=== PATIENT | female | born 1960 | race Caucasian/White ===

== ENCOUNTER → 2017-06-28 | Outpatient (CLI) | payer BC ==
--- NOTE | 2017-07-03 10:42 | MM ---
Reason for exam: screening (asymptomatic). Last mammogram was performed 5 years and 2 months ago. History: Patient is postmenopausal and had first child at age 30. Physical Findings: A clinical breast exam by your physician is recommended on an annual basis and results should be correlated with mammographic findings. MG Screening Mammo w CAD Bilateral CC and MLO view(s) were taken. Prior study comparison: April 25, 2012, bilateral digital screening mammo w/CAD. February 15, 2005, bilateral screening mammogram. The breast tissue is heterogeneously dense. This may lower the sensitivity of mammography. No significant changes when compared with prior studies. ASSESSMENT: Benign, BI-RAD 2 RECOMMENDATION: Routine screening mammogram of both breasts in 1 year.
== END | disposition home or self-care (01) ==
LOC: RADMAMWWP 17:07
PROVIDERS: ATTEND Family Medicine
DX: Z12.31 Encounter for screening mammogram for malignant neoplasm of breast (principal)

== ENCOUNTER 2017-06-30 10:13 | Day surgery (SDC) | payer BC ==
[2017-06-28 10:07] VITALS: BMI 31.1
[~2017-06-30 10:13] MED LIST: LACTATED RINGERS 1,000 ML IV SCH; LIDOCAINE 1% 20 ML VIAL (10MG/ML) FOR IV START INTRADERMA PRN
[2017-06-30 11:14] VITALS: RESP 16
[2017-06-30] MEDS ORDERED: PROPOFOL 10 MG/ML 20 ML VIAL IV ONE (11:40)
--- NOTE | 2017-06-30 11:43 | P.GSHP ---
History of Present Illness H&P Date: 06/30/17 Chief Complaint: Screening colonoscopy This a 57-year-old female referred from Dr. Ira Huitron. Patient rents today for initial screening colonoscopy. Past Medical History Past Medical History: No Reported History History of Any Multi-Drug Resistant Organisms: None Reported Past Surgical History: Tonsillectomy Past Anesthesia/Blood Transfusion Reactions: No Reported Reaction Smoking Status: Never smoker - Past Family History Father Family Medical History: Cancer Medications and Allergies Home Medications Medication Instructions Recorded Confirmed Type No Known Home Medications [No 06/28/17 06/30/17 History Known Home Medications] Allergies Allergy/AdvReac Type Severity Reaction Status Date / Time No Known Allergies Allergy Verified 06/30/17 10:58 Surgical - Exam Vital Signs Temp Pulse Resp BP Pulse Ox 97.3 F L 83 16 136/80 94 L 06/30/17 11:09 06/30/17 11:09 06/30/17 11:09 06/30/17 11:09 06/30/17 11:09 - General well developed, no distress - Eyes PERRL - ENT normal pinna - Neck no masses - Respiratory normal expansion - Cardiovascular Rhythm: regular - Abdomen Abdomen: soft, non tender Assessment and Plan Plan: We will perform screening colonoscopy.
--- NOTE | 2017-06-30 11:55 | P.OP ---
Date of Procedure: 06/30/17 Preoperative Diagnosis: Screening colonoscopy Postoperative Diagnosis: Diverticulosis Procedure(s) Performed: Colonoscopy Implants: Anesthesia: MAC Surgeon: Foreign Rehman Pathology: none sent Condition: stable Disposition: PACU Indications for Procedure: Operative Findings: Description of Procedure: Patient's placed on the endoscopy table in the lateral position. She received IV sedation. Digital rectal exam was performed which revealed no abnormalities. The flexible colonoscope was then placed patient anus passed throughout the entire colon. The ileocecal valve was visualized. The cecum, ascending and transverse colon appeared normal. In the descending; there is mild diverticular changes. The scope was then brought back the rectum and this appeared normal. Scope was withdrawn for patient.
[2017-06-30 12:09] VITALS: TEMP 98
[2017-06-30 12:39] VITALS: BP 132/81; PULSE 80
== END 2017-06-30 12:51 | disposition home or self-care (01) ==
LOC: ORWHC2ENDO 10:13
PROVIDERS: ATTEND Surgery
DX: Z12.11 Encounter for screening for malignant neoplasm of colon (principal); K57.30 Diverticulosis of large intestine without perforation or abscess without bleeding; Z80.9 Family history of malignant neoplasm, unspecified
CPT/HCPCS: G0121; J2704

== ENCOUNTER → 2018-09-19 | Outpatient (CLI) | payer OTHER ==
--- NOTE | 2018-09-19 13:22 | MM ---
Reason for exam: screening (asymptomatic). Last mammogram was performed 1 year and 3 months ago. History: Patient is postmenopausal and had first child at age 30. Physical Findings: A clinical breast exam by your physician is recommended on an annual basis and results should be correlated with mammographic findings. MG Screening Mammo w CAD Bilateral CC, MLO, and XCCL view(s) were taken. Prior study comparison: June 28, 2017, bilateral MG screening mammo w CAD. April 25, 2012, bilateral digital screening mammo w/CAD. The breast tissue is heterogeneously dense. This may lower the sensitivity of mammography. No suspicious abnormality. No significant changes when compared with prior studies. ASSESSMENT: Negative, BI-RAD 1 RECOMMENDATION: Routine screening mammogram of both breasts in 1 year.
--- NOTE | 2018-09-19 16:44 | BD ---
EXAMINATION TYPE: Axial Bone Density DATE OF EXAM: 09/19/2018 COMPARISON: NONE CLINICAL HISTORY: post menopausal, Z78.0 Height: 5'2 Weight: 155 FRAX RISK QUESTIONS: Secondary Osteoporosis: 3. Menopause before 45: y RISK FACTORS HISTORY OF: Postmenopausal woman: y MEDICATIONS: Additional History: EXAM MEASUREMENTS: Bone mineral densitometry was performed using the Digital Lumens System. Bone mineral density as measured about the Lumbar spine is: ----- L1-L4(G/cm2): 1.052 T Score Values are as follows: ----- L2: -1.3 ----- L3: -1.2 ----- L4: -0.7 ----- L1-L4: -1.1 Bone mineral density about the R hip (g/cm2): 0.813 Bone mineral density about the L hip (g/cm2): 0.838 T Score values are as follows: -----R Neck: -1.6 -----L Neck: -1.4 -----R Total: -1.1 -----L Total: -0.8 IMPRESSION: Osteopenia (T Score between -2.5 and -1). There is slightly increased risk of fracture and the patient may be considered for treatment. Re-Screen 2-5 years. NOTE: T-SCORE=SD OF THE YOUNG ADULT MEAN.
== END | disposition home or self-care (01) ==
LOC: RADMAMWWP 07:00
PROVIDERS: ATTEND Family Medicine
DX: Z12.31 Encounter for screening mammogram for malignant neoplasm of breast (principal); M85.80 Other specified disorders of bone density and structure, unspecified site; Z78.0 Asymptomatic menopausal state; Z80.3 Family history of malignant neoplasm of breast
CPT/HCPCS: 77067; 77080

== ENCOUNTER 2021-04-15 08:48 | Day surgery (SDC) | payer OTHER ==
[2021-03-09 11:52] VITALS: BMI 27.4
[~2021-04-15 08:48] MED LIST changes: +LIDOCAINE 1% (10MG/ML) FOR IV START INTRADERMA PRN; -LIDOCAINE 1% 20 ML VIAL (10MG/ML) FOR IV START INTRADERMA PRN
[2021-04-15] MEDS ORDERED: LIDOCAINE 1% (10MG/ML) FOR IV START INTRADERMA ONE ×2 (09:33→09:34)
[2021-04-15] MEDS ORDERED: LACTATED RINGERS 1,000 ML IV ONE (09:34)
[2021-04-15 09:37] VITALS: RESP 16; TEMP 97.8
[2021-04-15] MEDS ORDERED: fentaNYL (PF) 50 MCG/ML 2 ML AMP ONE (10:26)
[2021-04-15] MEDS ORDERED: MIDAZOLAM 2 MG/2 ML VIAL ONE (10:26)
[2021-04-15] MEDS ORDERED: GLYCOPYRROLATE 0.2 MG/ML 2 ML VIAL ONE (10:26)
[2021-04-15] MEDS ORDERED: PROPOFOL 10 MG/ML 20 ML VIAL IV ONE (10:26)
--- NOTE | 2021-04-15 10:35 | P.GSHP ---
History of Present Illness H&P Date: 04/15/21 Chief Complaint: Screening colonoscopy Is a 61-year-old female who presents today for screening colonoscopy. Patient denies a significant GI complaints. Past Medical History Past Medical History: No Reported History History of Any Multi-Drug Resistant Organisms: None Reported Past Surgical History: Tonsillectomy Additional Past Surgical History / Comment(s): COLONOSCOPY Past Anesthesia/Blood Transfusion Reactions: No Reported Reaction Smoking Status: Never smoker - Past Family History Father Family Medical History: Cancer Medications and Allergies Home Medications Medication Instructions Recorded Confirmed Type Loratadine [Claritin] 10 mg PO DAILY PRN 10/06/20 04/15/21 History Aspirin 325 mg PO DAILY PRN 03/09/21 04/15/21 History Allergies Allergy/AdvReac Type Severity Reaction Status Date / Time No Known Allergies Allergy Verified 04/15/21 09:19 Surgical - Exam Vital Signs Temp Pulse Resp BP Pulse Ox 97.8 F 76 16 135/64 96 04/15/21 09:32 04/15/21 09:32 04/15/21 09:32 04/15/21 09:32 04/15/21 09:32 - General well developed, well nourished, no distress - Eyes PERRL - ENT normal pinna - Neck no masses - Respiratory normal expansion - Cardiovascular Rhythm: regular - Abdomen Abdomen: soft - Genitourinary normal external genitalia Assessment and Plan Assessment: We'll perform screening colonoscopy
--- NOTE | 2021-04-15 10:51 | P.OP ---
Date of Procedure: 04/15/21 Preoperative Diagnosis: Screening colonoscopy Postoperative Diagnosis: Diverticulosis Procedure(s) Performed: Colonoscopy Anesthesia: MAC Surgeon: Foreign Rehman Pathology: other (Antrum) Condition: stable Disposition: PACU Description of Procedure: Patient's placed on the endoscopy table in the lateral position. She received IV sedation. Digital rectal exam was performed which revealed no abnormalities. The flexible colonoscope was then placed patient anus and passed throughout the entire colon. The ileocecal valve was visualized. The cecum, ascending and transverse colon appeared normal. In the descending and sigmoid colon there is moderate diverticular changes. There was no evidence of diverticulitis. Scope was then brought back the rectum and this appeared normal. Scope was withdrawn for patient.
[2021-04-15 11:28] VITALS: BP 116/64; PULSE 71
== END 2021-04-15 11:32 | disposition home or self-care (01) ==
LOC: ORWHC2ENDO 08:48
PROVIDERS: ATTEND Surgery
DX: Z12.11 Encounter for screening for malignant neoplasm of colon (principal); K57.90 Diverticulosis of intestine, part unspecified, without perforation or abscess without bleeding; Z79.82 Long term (current) use of aspirin; Z79.899 Other long term (current) drug therapy
CPT/HCPCS: J2250; J3010; J2704; G0121